=== PATIENT | female | born 2000 | race Caucasian/White ===

== ENCOUNTER 2020-01-02 15:22 | Emergency (ER) | payer BC ==
--- NOTE | 2020-01-02 15:47 | EDM.PDOC ---
ED HPI GENERAL MEDICAL PROBLEM - General Chief Complaint: Genitourinary Problem Stated Complaint: painful urination Time Seen by Provider: 01/02/20 15:40 Source of Information: Reports: Patient, Old Records ([facility] EMR. No paper hospital chart available.) History Limitations: Reports: No Limitations - History of Present Illness INITIAL COMMENTS - FREE TEXT/NARRATIVE: The patient drove herself to the emergency room via private automobile for evaluation of 11/12 vaginal burning, which started at about 1300 hours this afternoon with no treatment to this point. She does have a history of previous vaginal moniliasis and nonspecific vaginitis based on our medical records. The patient was apparently evaluated at [facility] at [facility] on 12/30 with a posit fannie UA at that time and patient started on Macrobid with 5 doses to this point and a total therapy regimen of 5 days. Her previous mild gross hematuria has since resolved with no current UTI symptoms. No recent history of abdominal pain, heartburn, nausea, diarrhea, melena, gross hematochezia, or any food intolerance, including fatty foods, etc.. The patient also denies any recent fever, cough, wheezing, dyspnea, etc.. Note previous history of chlamydia from a previous partner, which was treated, with current monogamous partner relationship with negative follow-up chlamydia screen on multiple occasions by her history. She is wishing to have STD testing, however. The patient is not practicing safe sex, although she is on control with no missed doses, etc. Onset: Today, Gradual Onset Date: 01/02/20 Onset Time: 13:00 Duration: Getting Worse Quality: Reports: Burning Severity: Moderate Improves with: Reports: None Worsens with: Reports: None Context: Reports: Other (As above). 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 below) (None) Vaginal Pain Score (Numeric/FACES): 7 - Related Data Allergies Allergy/AdvReac Type Severity Reaction Status Date / Time No Known Allergies Allergy Verified 01/02/20 15:23 Home Meds: Home Meds Levonorgestrel-Ethin Estradiol [Vienva-28 Tablet] 1 tab PO DAILY 01/02/20 [History] Nitrofurantoin Monohyd/M-Cryst [Macrobid 100 mg Capsule] 100 mg PO [id number] 01/02/20 [History] metroNIDAZOLE [Metrogel-Vaginal] 1 gm VG BID 5 Days #1 gel.w.appl 01/02/20 [Rx] Past Medical History Genitourinary History: Reports: STD, UTI, Recurrent, Other (See Below) Other Genitourinary History: Positive chlamydia in 2019, which was previously treated with multiple negative follow-up evaluations. 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 Recurrent vaginal moniliasis and nonspecific vaginitis. - Past Surgical History HEENT Surgical History: Reports: Oral Surgery Social & Family History - Tobacco Use Smoking Status *Q: Never Smoker Tobacco Use Within Last Twelve Months: No Used Tobacco, but Quit: No Smoking Cessation Information Provided To Patient: No Second Hand Smoke Exposure: No Second Hand Smoke Education Provided: No - Alcohol Use Alcohol Use History: Yes Days Per Week of Alcohol Use: 2 Days Per Week of Alcohol Use Comment: Usually mixed drinks. No previous DWIs, problems with alcohol abuse, etc. 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 ED EXAM, GENERAL - Physical Exam Exam: See Below Exam Limited By: No Limitations General Appearance: Alert, WD/WN, No Apparent Distress Head: Atraumatic, Normocephalic Neck: Normal Inspection, Supple, Non-Tender, Full Range of Motion. No: Lymphadenopathy (L), Lymphadenopathy (R), Thyromegaly Respiratory/Chest: No Respiratory Distress, Lungs Clear, Normal Breath Sounds, No Accessory Muscle Use, Chest Non-Tender. No: Pleural Rub, Retractions Cardiovascular: Normal Peripheral Pulses, Regular Rate, Rhythm, No Edema, No Gallop, No JVD, No Murmur, No Rub. No: Gallop/S3, Gallop/S4, Friction Rub Peripheral Pulses: 2+: Radial (L), Radial (R), Dorsalis Pedis (L), Dorsalis Ped is (R) GI/Abdominal: Normal Bowel Sounds, Soft, Non-Tender, No Organomegaly, No Distention, No Abnormal Bruit, No Mass. No: Guarding (Female) Exam: Normal External Exam, Normal Speculum Exam, Vaginal Discharge (Mixed cloudy and whitish vaginal discharge consistent with probable concomitant nonspecific vaginitis and/or vaginal moniliasis). No: Adnexal Mass, Adnexal Tenderness, Cervical Discharge, Cervical Lesions, Cervix Motion Tenderness, Enlarged Uterus, Uterine Tenderness, Vaginal Bleeding, Vaginal Lesions, Vaginal Tears Rectal (Female) Exam: Deferred Back Exam: Normal Inspection, Full Range of Motion. No: CVA Tenderness (L), CVA Tenderness (R), Muscle Spasm Extremities: Normal Inspection, Normal Range of Motion, Non-Tender, No Pedal Edema, Normal Capillary Refill. No: Trevon's Sign Neurological: Alert, Oriented, CN II-XII Intact, Normal Cognition, Normal Gait, No Motor/Sensory Deficits Psychiatric: Normal Affect, Normal Mood Skin Exam: Warm, Dry, Intact, Normal Color, No Rash, Stud(s) (Supraumbilical). No: Diaphoretic, Wound/Incision Lymphatic: No Adenopathy Course - Vital Signs Last Recorded V/S: Last Vital Signs Temp 36.2 C 01/02/20 15:30 Pulse 80 01/02/20 15:30 Resp 18 01/02/20 15:30 BP 142/79 H 01/02/20 15:30 Pulse Ox 100 01/02/20 15:30 Vital Signs - 24 hr 01/02/20 15:30 Temperature [ 36.2 C Temporal] Pulse, 80 Peripheral [ Right] Respiratory 18 Rate Blood Pressure 142/79 H [Right Upper Arm] O2 Sat by Pulse 100 Oximetry - Orders/Labs/Meds Orders: Active Orders 24 hr Category Date Time Status CHLAMYDIA AND GONORRHEA BY TMA Routine Lab 01/02/20 16:27 Received CULTURE URINE [RM] Routine Lab 01/02/20 15:44 Received MISCELLANEOUS CULT [MREF] Stat Lab 01/02/20 16:27 Received RPR (SYPHILIS SERO) W/ RFLX [REF] Routine Lab 01/02/20 16:15 Received Obtain Past Medical Record [OM.PC] Routine Oth 01/02/20 15:47 Active Labs: Laboratory Tests 01/02/20 Range/Units 15:44 Specimen Type Urincc Urine Color Dark yellow Urine Appearance Slightly cloudy Urine pH 6.5 (5.0-9.0) Ur Specific [place] >= 1.030 (1.005-1.030) Urine Protein 30 H (NEGATIVE) mg/dL Urine Glucose (UA) Negative (NEGATIVE) mg/dL Urine Ketones Negative (NEGATIVE) mg/dL Urine Occult Blood Negative (NEGATIVE) Urine Nitrite Negative (NEGATIVE) Urine Bilirubin Small H (NEGATIVE) Urine Urobilinogen 1.0 (0.2-1.0) E.U./dL Ur Leukocyte Esterase Negative (NEGATIVE) Urine RBC 0-5 /HPF Urine WBC 5-10 H /HPF Ur Epithelial Cells Moderate H /LPF Urine Bacteria Few (NONE TO FEW) /HPF Urine Mucus Many H (NEGATIVE) /LPF Urine set up for culture and sensitivity. RPR collected with results pending Microbiology 01/02/20 16:27 Wet Prep - Final Vagina No yeast cells or trichomonas noted with only rare WBCs and a few clue cells noted. Specimens collected for GC, chlamydia, and vaginal culture and sensitivity with results pending Meds: None - Radiology Interpretation Free Text/Narrative:: None Departure - Departure Time of Disposition: 17:10 Disposition: Home, Self-Care 01 Clinical Impression: UTI, Urinary tract infectious disease Vaginitis Qualifiers: Chronicity: acute Qualified Code(s): N76.0 - Acute vaginitis - Discharge Information *PRESCRIPTION DRUG MONITORING PROGRAM REVIEWED*: Not Applicable *COPY OF PRESCRIPTION DRUG MONITORING REPORT IN PATIENT AL: Not Applicable Prescriptions: metroNIDAZOLE [Metrogel-Vaginal] 1 gm VG BID 5 Days #1 gel.w.appl Instructions: Vaginitis, [id number], Urinary Tract Infection, Adult, [id number] Referrals: PCP,None [Primary Care Provider] - Forms: ED Department Discharge Additional Instructions: 1. Followup with your regular provider in 7-10 days as directed for reevaluation and repeat urine test with culture and sensitivity. Bring these discharge instructions with you to that visit. 2. Tylenol 650 mg by mouth every 4 hours and/or OTC ibuprofen 2-3 tabs by mouth every 6 hours with food as directed./needed. You may stagger these medications for 48-72 hours only, which essentially means that you are receiving a pain medication about every 2 hours. 3. Urine tests should be repeated at follow up visit with possible repeat urine culture,etc. at that time. Today's urine culture is pending with results in about 2-3 days. We will call you, if we need to change your therapy. 4. Encourage oral fluids, including daily cranberry use, etc.as directed. 5. Immediately after this visit verify that your cellular telephone's voicemail has been activated and is empty. Also verify that your home telephone's answering machine is operating properly and has space to receive messages. Note that it is sometimes necessary for us to be able to contact you at a later date to discuss your medical care. 6. Please remember that we are ALWAYS here for you and want to answer any questions you may have. Feel free to call the hospital any time and we call you back CHIQUITA. 7. ALWAYS practice safe sex as discussed with alternate means of control for at least 1 month when on any antibiotics, etc. Sepsis Event Note (ED) - Focused Exam Vital Signs: Vital Signs Temp Pulse Resp BP Pulse Ox 01/02/20 15:30 36.2 C 80 18 142/79 H 100 - Problem List & Annotations (1) Vaginitis SNOMED Code(s): 23492869 Code(s): N76.0 - ACUTE VAGINITIS Status: Acute Priority: High Current Visit: No Onset Date: 01/02/20 Annotation/Comment:: Note wet prep results as above. No evidence of yeast infection, however some clue cells. Probable nonspecific bacterial vaginitis by clinical exam. MetroGel initiated. Note previous history of chlamydia with additional specimens collected for STDs per her request. She apparently had a recent negative HIV screen. The patient was extensively counseled concerning the importance of practicing safe sex at all times, including no oral sex, etc. She does not need a school or work excuse. Qualifiers: Chronicity: acute Qualified Code(s): N76.0 - Acute vaginitis (2) UTI, Urinary tract infectious disease SNOMED Code(s): 72821623 Code(s): N39.0 - URINARY TRACT INFECTION, SITE NOT SPECIFIED Status: Acute Priority: High Current Visit: No Onset Date: ~12/31/19 Annotation/Comment:: Patient is to complete current Macrobid regimen. She is not certain whether a previous urine culture and sensitivity was performed. Repeat UA today with specimen for culture and sensitivity also collected. Change in antibiotic therapy depending on her clinical course. The patient was cautioned concerning the effects of antibiotics on her control pill. - Problem List Review Problem List Initiated/Reviewed/Updated: Yes - My Orders Last 24 Hours: My Active Orders 01/02/20 15:44 CULTURE URINE [RM] Routine 01/02/20 15:47 Obtain Past Medical Record [OM.PC] Routine 01/02/20 16:15 RPR (SYPHILIS SERO) W/ RFLX [REF] Routine 01/02/20 16:27 CHLAMYDIA AND GONORRHEA BY TMA Routine MISCELLANEOUS CULT [MREF] Stat - Assessment/Plan Last 24 Hours: My Active Orders 01/02/20 15:44 CULTURE URINE [RM] Routine 01/02/20 15:47 Obtain Past Medical Record [OM.PC] Routine 01/02/20 16:15 RPR (SYPHILIS SERO) W/ RFLX [REF] Routine 01/02/20 16:27 CHLAMYDIA AND GONORRHEA BY TMA Routine MISCELLANEOUS CULT [MREF] Stat Assessment:: As above Plan: As above. Extensive precautions were given to the patient, who is in agreement with the treatment plan. See Patient Instructions for further treatment and plan.
[2020-01-02 16:16] VITALS: BP 142/79; PULSE 80
[2020-01-07 21:43] LABS: C.TRACHOMATIS BY TMA Negative (Negative); N.GONORRHOEAE BY TMA Negative (Negative)
== END 2020-01-02 17:15 | disposition home or self-care (01) ==
LOC: LL.ED 15:22
DX: N39.0 Urinary tract infection, site not specified (principal); N76.0 Acute vaginitis
CPT/HCPCS: 36415; 81001; 86592; 87070; 87086; 87205; 87210; 87491; 87591; 99283